=== PATIENT | male | born 1930 | race Caucasian/White ===

== ENCOUNTER 2016-12-02 12:40 | Day surgery (SDC) | payer MEDICARE, BC ==
--- NOTE | 2016-11-17 10:39 | HP ---
PREOPERATIVE HISTORY AND PHYSICAL: DATE OF SURGERY/ADMISSION: 12/02/16 DATE OF OFFICE VISIT/ENCOUNTER: 11/16/16 ATTENDING SURGEON: Ben Desai MD * (dictated by HANNAH Jernigan) PROCEDURE: Left wrist carpal tunnel release. CHIEF COMPLAINT: Numbness and tingling, left hand. HISTORY OF PRESENT ILLNESS: This is an 86-year-old male who complains of numbness, tingling, and pain in his left hand that has been ongoing for several years. He reports he gets symptoms every night that awakens him. He says it takes several minutes for it to loosen up and stretch it out and to get it feeling better before he is able to get back to sleep. He has tried a wrist brace; however, it has not been helpful in alleviating his symptoms. He has also tried some activity modification and is not getting any relief. During the day, he feels the sensation in his fingertips is reasonable, but he has lost some strength in the hand. Approximately 2 years ago, he had a carpal tunnel release performed on the right by Dr. Mejia. He has not had full resolution of symptoms in the right hand, but his left hand now is much more bothersome and he has consented to proceed with a left carpal tunnel release. PAST MEDICAL HISTORY: 1. History of pulmonary embolism about 6 to 7 years ago. 2. Hypertension. PAST SURGICAL HISTORY: 1. Hernia repair x2. 2. Right carpal tunnel release. 3. Bilateral eye cataract surgery. CURRENT MEDICATIONS: 1. Nifedipine ER 30 mg 1 tab daily. 2. Warfarin sodium 5 mg daily. 3. Tylenol over the counter p.r.n. ALLERGIES: 1. ANCEF. 2. HYDROCHLOROTHIAZIDE. 3. AMOXICILLIN, reaction unknown. FAMILY MEDICAL HISTORY: Noncontributory. 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 He is a former smoker. He quit approximately 30 years ago. He denies recreational drug use and alcohol use. REVIEW OF SYSTEMS: General: Negative for fevers, chills or night sweats. No known anesthesia problems in the past. HEENT: Negative for headache, lightheadedness or syncopal episodes. Integumentary: Negative for abrasions, lesions or open wounds. Cardiothoracic: Positive for hypertension. Negative for chest pain, palpitations or edema. Pulmonary: Negative for shortness of breath with exertion, chronic cough or COPD. GI: Negative for nausea, vomiting , diarrhea, constipation or GERD. : Negative for nocturia, urinary frequency , urgency, history of UTIs or kidney problems. Musculoskeletal: Positive for current complaint. Negative for chronic or intermittent back pain or history of fractures. Neurological: Negative for history of seizure, stroke or epilepsy. Endocrine: Negative for diabetes or thyroid issues. Hematologic: Negative for easy bruising, anemia excessive bleeding. Positive for history of PE. Infectious Disease: Negative for history of MRSA, hepatitis C or HIV. PHYSICAL EXAMINATION GENERAL: Well-developed, well-nourished 86-year-old male, in no acute distress. VITAL SIGNS: Height 6 feet tall, weight 197 pounds, pulse rate 60, blood pressure 130/81. HEENT: Normocephalic, atraumatic. Pupils are equal, round, and reactive to light and accommodation. Extraocular movements are intact. Throat is clear. NECK: Supple. No palpable lymph nodes. PULMONARY: Lungs are clear to auscultation bilaterally. No wheezes, rales or rhonchi. CARDIOTHORACIC: Regular rate and rhythm. S1, S2. No murmurs, rubs or gallops. No edema. ABDOMEN: Positive bowel sounds, soft, nontender. MUSCULOSKELETAL: On exam of the left hand, there is [id number] thenar atrophy. He has minimal first dorsal interosseus atrophy. His strength is 4/5 , interosseus strength is 5/5. He has good wrist motion with minimal pain. He has a positive Tinel's at the median nerve and some sensitivity at the wrist flexion crease. Carpal compression test is unremarkable. Negative Tinel's test at the ulnar nerve at the wrist and elbow. Phalen's test is negative. NEUROLOGICAL: Alert and oriented x3. Cranial nerves II through XII are intact. DIAGNOSTIC STUDIES: EMG studies in May of 2007 show a generalized sensory, motor, and polyneuropathy, with superimposed medial nerve slowing across the wrists bilaterally. ASSESSMENT: Left carpal tunnel syndrome. PLAN: The patient is scheduled to undergo a left carpal tunnel release with Dr. Desai on 12/02/16. He will return to the office in 10 to 14 days postop for followup and suture removal. Tramadol will be prescribed for postoperative pain on the day of surgery and the patient will stop taking Coumadin 2 days prior to surgery and will restart the next night after surgery. HANNAH JERNIGAN [id number]/[facility] #: [id number] HUAN
[~2016-12-02 12:40] MED LIST: Lidocaine 1% MPF wEPI 200,000* 30 ML SDV ONE
[2016-12-02] MEDS ORDERED: Bupivacaine 0.25% SDV* 30 ML ONE (12:49)
[2016-12-02 13:49] VITALS: BP 166/81
--- NOTE | 2016-12-03 12:00 | OP ---
OPERATIVE REPORT: DATE OF OPERATION: 12/02/16 - [place] DATE OF : 34 SURGEON: Ben Desai MD OVEN PRESS TENDER: HANNAH Harrington ANESTHESIOLOGIST: None. ANESTHESIA: Local only with 1% lidocaine with epinephrine and bicarbonate. PRE-OP DIAGNOSIS: Left carpal tunnel syndrome. POST-OP DIAGNOSIS: Left carpal tunnel syndrome. OPERATIVE PROCEDURE: Left open carpal tunnel release. INDICATIONS: Latrell is 86. He has done very well with the prior right carpal tunnel release. He came back to the office wanting to talk about the left, it is bothering him a lot, waking him up frequently at night time. We talked about risks and benefits. ESTIMATED BLOOD LOSS: 5 mL. COMPLICATIONS: None. FINDINGS: As expected. DESCRIPTION OF PROCEDURE: Latrell was seen in the preoperative holding area. The correct site, side, and procedure were identified. We came back to the operating room where the arm was prepped and draped in the usual fashion. A time out was performed. I began by making a 2 to 3 cm incision in a standard location for an open carpal tunnel release. Dissection was carried down through the skin, through the subcutaneous tissue, and palmar fascia to expose the transverse carpal ligament. I then released the ligament just stopped at the radial aspect of the hook of the hamate. The release was completed distally and then I came proximally where I released the fascia and subcutaneous tissue and retracted this volarly and ulnarly with a Myrna retractor. I then used a knife and the tenotomy scissors to complete the rest of the release of the transverse carpal ligament under direct visualization to a level several centimeters proximal to the wrist flexion crease. Once I checked the decompression, it was absolutely completely released distally and proximally. I irrigated out the wound. Skin was closed with 4-0 nylon suture. Wound was dressed with Xeroform, 4x4, sterile Webril, and an Benjamin wrap. He was then taken to the recovery room in stable condition. [id number]/[facility] #: [id number] MTDChepe
== END 2016-12-02 13:57 | disposition home or self-care (01) ==
LOC: OREAST 12:40
PROVIDERS: ATTEND Orthopaedic Surgery Hand Surgery
DX: G56.02 Carpal tunnel syndrome, left upper limb (principal); I10 Essential (primary) hypertension; Z86.711 Personal history of pulmonary embolism; Z79.01 Long term (current) use of anticoagulants; Z87.891 Personal history of nicotine dependence
CPT/HCPCS: J2001